=== PATIENT | female | born 1950 | race Caucasian/White ===

== ENCOUNTER 2018-11-26 21:33 | Emergency (ER) | payer MEDICARE, BC ==
--- NOTE | 2018-11-26 21:45 | Emergency Department Record ---
History of Present Illness - General Stated Complaint: DROPPING FACE Time Seen by Provider: 11/26/18 21:37 Source: Patient, Family, EMS Mode of Arrival: EMS Limitations: Altered mental status - History of Present Illness Initial Comments: 67 yo female presents to ED for evaluation of confusion, slurred speech that began approximately 14 hours ago. Patient's niece reports that family members believed that she may have taken more of her medication than prescribed. Family reports history of HTN, previous CVA. Family reports intermittent garbled speech, denies focal weakness on examination. MD Complaint: Confusion Onset/Timin -: Hour(s) Severity: Moderate Consistency: Intermittent Context: Change in medication - Rekha Coma Scale Eye Response: (4) Open spontaneously Motor Response: (6) Obeys commands Verbal Response: (5) Oriented Rekha Total: 15 - Related Data Home Medications Medication Instructions Recorded Confirmed Last Taken Ergocalciferol (Vitamin D2) 50,000 unit PO WEEKLY 11/26/18 11/26/18 Unknown [Vitamin D2] Metoprolol Succinate 100 mg PO DAILY 11/26/18 11/26/18 Unknown Allergies Allergy/AdvReac Type Severity Reaction Status Date / Time aspirin [ASPIRIN] Allergy Severe DIFFICULTY Verified 11/26/18 21:41 BREATHING diazepam [From VALIUM] Allergy Severe DIFFICULTY Verified 11/26/18 21:41 BREATHING Iodine and Iodide Containing Allergy Severe DIFFICULTY Verified 11/26/18 21:41 Produc BREATHING cephalexin monohydrate Allergy Intermediate RASH Verified 11/26/18 21:41 [From Keflex] codeine Allergy Intermediate RASH Verified 11/26/18 21:41 erythromycin base Allergy Intermediate HIVES Verified 11/26/18 21:41 [From TIFFANIE-TAB] iopamidol [IOPAMIDOL] Allergy Intermediate HIVES Verified 11/26/18 21:41 morphine [MORPHINE] Allergy Intermediate HIVES Verified 11/26/18 21:41 shellfish derived Allergy Intermediate RASH Verified 11/26/18 21:41 pregabalin [From Lyrica] AdvReac Severe ALTERED Verified 11/26/18 21:41 MENTAL STATUS Review of Systems ROS unobtainable: Due to mental status Neurological: Reports: Confusion, Headache Past Medical History - SOCIAL HISTORY Smoking Status: Never smoker - RESPIRATORY Hx Respiratory Disorders: Yes Hx Asthma: Yes Hx Bronchitis: Yes - CARDIOVASCULAR Hx Cardio Disorders: Yes Hx Hypertension: Yes - NEURO Hx Neuro Disorders: No - GI Hx GI Disorders: No - Hx Genitourinary Disorders: No - ENDOCRINE Hx Endocrine Disorders: Yes Hx Thyroid Disease: Yes - MUSCULOSKELETAL Hx Musculoskeletal Disorders: No - PSYCH Hx Psych Problems: No - HEMATOLOGY/ONCOLOGY Hx Hematology/Oncology Disorders: No Family Medical History Hx Cancer: Father Hx Heart Disease: Mother Physical Exam - General General Appearance: Other (Alert but appears somewhat intoxicated, mild confusion, AO x 2 (believes it is currently 2016), intermittent slurred speech is present with intermittent clear speech.) Limitations: Altered mental status - Head Head exam: Atraumatic, Normocephalic, Normal inspection Head exam detail: negative: Abrasion, Contusion, Chapin's sign, General tenderness, Hematoma, Laceration - Eye Eye exam: Normal appearance. negative: Conjunctival injection, Periorbital swelling, Periorbital tenderness, Scleral icterus - ENT Ear exam: negative: Auricular hematoma, Auricular trauma Nasal Exam: negative: Active bleeding, Discharge, Dried blood, Foreign body Mouth exam: negative: Drooling, Laceration, Muffled voice, Tongue elevation - Neck Neck exam: Normal inspection. negative: Meningismus, Tenderness - Respiratory Respiratory exam: Normal lung sounds bilaterally. negative: Rales, Respiratory distress, Rhonchi, Stridor - Cardiovascular Cardiovascular Exam: Regular rate, Normal rhythm, Normal heart sounds - GI/Abdominal GI/Abdominal exam: Soft. negative: Rebound, Rigid, Tenderness - Rectal Rectal exam: Deferred - exam: Deferred - Extremities Extremities exam: Normal inspection. negative: Pedal edema, Tenderness - Back Back exam: Denies: CVA tenderness (R), CVA tenderness (L) - Neurological Neurological exam: Altered, CN II-XII intact, Other (4+ strength LLE compared with right LE, no other focal deficit elicited on examination.) - Psychiatric Psychiatric exam: Other - Skin Skin exam: Normal color. negative: Abrasion Type of lesion: negative: abrasion Course - Reevaluation(s) Reevaluation #1: 11/26/18 21:46 Patient was seen and examined, no focal deficits on examination. Examination appears more metabolic in origin. Patient is NOT a tPA candidate based on both examination/NIH stroke scale and duration of symptoms. Patient is also allergic to IV contrast dye and shellfish, CTA cannot be performed. Accucheck on arrival 106. EKG: NSR 80 Normal intervals, slight QRS duration ST-T wave changes I, IIV4-V6 No previous is available for comparison. 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 TSH 15.60 Nursing staff is obtaining UA sample via catheter as the patient has tried to urinate without success. Reevaluation #3: 11/26/18 22:50 UDS reviewed: +Opiates (has pain pump) +TCAs: On psychiatric medications UA appears negative as well for infection. Will initiate transfer for further evaluation. Reevaluation #4: 11/26/18 23:05 Case was discussed with Dr. Simpson, will accept transfer at this time for further evaluation. Medical Decision Making - Lab Data Result diagrams: 11/26/18 21:40 11/26/18 21:40 Disposition Disposition: Transfer Clinical Impression: Altered mental state Qualifiers: Altered mental status type: unspecified Qualified Code(s): R41.82 - Altered mental status, unspecified Disposition: Acute Care Hospital Transfer Transfer To: [facility] Reason For Transfer: Altered mental status Accepting Physician: Tatiana Time Discussed w/Accepting Physician: 23:06 Condition: (2) Stable Time of Disposition: 23:06 Quality - Quality Measures Quality Measures: N/A - Blood Pressure Screening Does Patient Have Any of the Following: No Blood Pressure Classification: Pre-Hypertensive BP Reading Systolic Measurement: 178 Diastolic Measurement: 84 Screening for High Blood Pressure: < Pre-Hypertensive BP, F/U Documented > [ [id number]] Pre-Hypertensive Follow-up Interventions: Referral to alternative/primary care provider.
[2018-11-26 22:05] LABS: HEMATOCRIT 39.3 % (35.0-47.0); HEMOGLOBIN 12.5 gm/dl (11.6-16.0); MEAN CELL VOLUME 91.2 fl (81-97); MEAN CORPUSCULAR HGB CONC 31.8 g/dl (32-36); MEAN PLATELET VOLUME 10.1 fl (7.4-10.4); PLATELET COUNT 241 K/uL (130-400); RED BLOOD COUNT 4.31 M/uL (3.80-5.40); RED CELL DISTRIBUTION WIDTH 14.2 % (11.5-14.5); WHITE BLOOD COUNT W/O DIFF 6.3 K/uL (4.2-12.2)
[2018-11-26 22:14] LABS: BLOOD UREA NITROGEN 17 mg/dL (8-23)
[2018-11-26 22:15] LABS: CREATININE 1.2 mg/dL (0.5-0.9); EST GLOMERULAR FILTRATION RATE 47 mL/min; TOTAL PROTEIN 7.5 g/dL (6.6-8.7)
[2018-11-26 22:16] LABS: PROTHROMBIN TIME (PATIENT) 10.5 SECONDS (9.5-12.1)
[2018-11-26 22:17] LABS: GLUCOSE,RANDOM 118 mg/dL (74-109)
[2018-11-26 22:20] LABS: ALB/GLOB RATIO 1.4 (1.1-1.8); ALBUMIN 4.4 g/dL (4.0-5.0); ALKALINE PHOSPHATASE 67 U/L (35-104); ALT/SGPT 14 U/L (<33); AST/SGOT 25 U/L (10.0-35.0)
[2018-11-26 22:23] LABS: AMMONIA < 10 umol/L (11.0-51.0)
[2018-11-26 22:35] LABS: ANISOCYTOSIS 1+; PLATELET ESTIMATE NORMAL (NORMAL)
[2018-11-26 22:49] LABS: AMPHETAMINE SCREEN URINE NOT DETECTED; BARBITURATE SCREEN URINE NOT DETECTED; BENZODIAZEPINE SCREEN URINE NOT DETECTED; COCAINE SCREEN URINE NOT DETECTED; METHADONE SCREEN URINE NOT DETECTED; METHAMPHETAMINE SCREEN NOT DETECTED; OPIATE SCREEN URINE DETECTED; OXYCODONE SCREEN URINE NOT DETECTED; PHENCYCLIDINE SCREEN URINE NOT DETECTED; PROPOXYPHENE SCREEN URINE NOT DETECTED; THC SCREEN URINE NOT DETECTED; TRICYCLIC ANTIDEPRESSANT SCRN DETECTED; URINE APPEARANCE CLEAR; URINE BILIRUBIN NEGATIVE (NEGATIVE); URINE BLOOD SMALL (NEGATIVE); URINE COLOR YELLOW; URINE GLUCOSE (UA) NEGATIVE (NEGATIVE); URINE KETONE NEGATIVE (NEGATIVE); URINE LEUKOCYTE ESTERASE NEGATIVE (NEGATIVE); URINE NITRITE NEGATIVE (NEGATIVE); URINE PROTEIN NEGATIVE (NEGATIVE)
[2018-11-26 22:57] LABS: URINE EPITHELIAL CELLS NONE SEEN (FEW); URINE RBC NONE SEEN (NONE SEEN); URINE WBC NONE SEEN (0-2/hpf)
== END 2018-11-27 00:44 | disposition short-term general hospital (02) ==
LOC: ER 21:33
DX: R41.82 Altered mental status, unspecified (principal); R51 Headache; I10 Essential (primary) hypertension; Z86.73 Personal history of transient ischemic attack (TIA), and cerebral infarction without residual deficits
CPT/HCPCS: 99285 ×2; 82140; 85610; 80053; 36416; 81001; 82948; 84443; 80305; 84484; 85027; 70450; 93005; 93010; G0480; 80320